=== PATIENT | male | born 1940 | race Caucasian/White ===

== ENCOUNTER → 2016-09-18 | Outpatient (CLI) | payer MEDICARE, OTHER ==
[~2016-09-18] MED LIST: CARTIA XT120 MG OP; FINASTERIDE5 M1 PO; KLONOPIN 0.5MG0.5 MG PO; LATANOPROST 2.2.5 ML OU; SERTRALINE HYDR50 MG PO; TIMOLOL MALEATE10 M1 OU; VITAMIN D400 UNI1 PO; WARFARIN SOD5 MG
== END ==
LOC: RAD 09:31
DX: R53.1 Weakness (principal); R26.89 Other abnormalities of gait and mobility
CPT/HCPCS: Q9967

== ENCOUNTER → 2016-10-09 | Outpatient (CLI) | payer MEDICARE, OTHER | LOC: RAD 09:46 | DX: R93.8 Abnormal findings on diagnostic imaging of other specified body structures (principal); R63.4 Abnormal weight loss | CPT/HCPCS: Q9967 ==

== ENCOUNTER → 2016-10-13 | Day surgery (SDC) | payer MEDICARE, OTHER | LOC: MSO 09:29 | DX: Z12.11 Encounter for screening for malignant neoplasm of colon (principal); R63.4 Abnormal weight loss; K59.00 Constipation, unspecified; Z79.01 Long term (current) use of anticoagulants; I48.92 Unspecified atrial flutter; I48.91 Unspecified atrial fibrillation | CPT/HCPCS: 00740; G0121; 00810; J7120 ==

== ENCOUNTER → 2016-10-16 | Outpatient (CLI) | payer MEDICARE, OTHER | LOC: RAD 08:52 | DX: K76.9 Liver disease, unspecified (principal) ==

== ENCOUNTER 2016-10-30 17:07 | Emergency (ER) | payer MEDICARE, OTHER ==
[~2016-10-30] VITALS: Wt 78.6 kg
[2016-10-30] MEDS ORDERED: CARTIA XT120 MG OP (17:18)
[2016-10-30] MEDS ORDERED: WARFARIN SOD5 MG (17:19)
[2016-10-30] MEDS ORDERED: SERTRALINE HYDR50 MG PO (17:19)
[2016-10-30] MEDS ORDERED: KLONOPIN 0.5MG0.5 MG PO (17:19)
[2016-10-30] MEDS ORDERED: LATANOPROST 2.2.5 ML OU (17:20)
[2016-10-30] MEDS ORDERED: TIMOLOL MALEATE10 M1 OU (17:20)
[2016-10-30] MEDS ORDERED: FINASTERIDE5 M1 PO (17:21)
[2016-10-30] MEDS ORDERED: VITAMIN D400 UNI1 PO (17:21)
[2016-10-30 19:29] VITALS: BP 110/67
== END 2016-10-30 19:37 | disposition home or self-care (01) ==
LOC: ED 17:07
DX: K56.41 Fecal impaction (principal); R11.0 Nausea; Z79.01 Long term (current) use of anticoagulants; I48.91 Unspecified atrial fibrillation

== ENCOUNTER 2016-12-23 14:00 | Outpatient (RCR) | payer MEDICARE, OTHER | END 2017-01-06 13:21 | disposition home or self-care (01) | LOC: PT 14:00 | DX: R53.1 Weakness (principal) ==

== ENCOUNTER → 2016-12-23 | Outpatient (CLI) | payer MEDICARE, OTHER | LOC: RAD 11:00 | DX: H53.9 Unspecified visual disturbance (principal); I65.23 Occlusion and stenosis of bilateral carotid arteries ==

== ENCOUNTER → 2017-08-15 | Outpatient (CLI) | payer MEDICARE, OTHER ==
[2017-08-15 11:11] LABS: PROTHROMBIN TIME 19.9 SECONDS (9.0-12.0)
== END ==
LOC: LAB 10:49
PROVIDERS: Family Medicine
DX: Z79.01 Long term (current) use of anticoagulants (principal)

== ENCOUNTER 2017-10-08 11:00 | Outpatient (RCR) | payer MEDICARE, OTHER | END 2017-10-08 11:30 | disposition home or self-care (01) | LOC: PT 11:00 | DX: Z47.1 Aftercare following joint replacement surgery (principal); Z96.651 Presence of right artificial knee joint | CPT/HCPCS: G8978-GP; G8979-GP ==

== ENCOUNTER 2019-07-24 17:30 | Emergency (ER) | payer MEDICARE, OTHER ==
[2019-07-24] MEDS ORDERED: VENLAFAXINE HYD75 MG (17:39)
[2019-07-24] MEDS ORDERED: METOPROLOL SUCC25 M1 (17:40)
[2019-07-24] MEDS ORDERED: PRAVASTATIN SOD10 MG (17:40)
[2019-07-24 18:12] LABS: EOS # 0.1 (0.04-0.40); HEMATOCRIT 42.4 % (42.0-52.0); HEMOGLOBIN 15.1 g/dL (13.5-18.0); MEAN CELL VOLUME 91 fl (78-100); MEAN CORPUSCULAR HEMOGLOBIN 33 pg (27-31); MEAN CORPUSCULAR HGB CONC 36 g/dL (33-37); MEAN PLATELET VOLUME 11.1 fl (7.4-10.4); MONO # 0.6 (0.20-0.80); NEU # 4.1 (1.40-6.50); PLATELET COUNT 133 K/mm3 (130-400); RED BLOOD COUNT 4.65 M/mm3 (4.20-5.60); WHITE BLOOD COUNT 5.8 K/mm3 (4.8-10.8)
[2019-07-24 18:22] LABS: ALBUMIN 3.9 g/dL (3.4-4.8); POTASSIUM 4.3 mmol/L (3.5-5.1)
[2019-07-24 18:23] LABS: CALCIUM 8.8 mg/dL (8.3-10.5)
[2019-07-24 18:25] LABS: TOTAL PROTEIN 6.7 g/dL (6.2-8.1)
[2019-07-24 18:26] LABS: TOTAL BILIRUBIN 0.7 mg/dL (0.2-1.2)
[2019-07-24] MEDS ORDERED: KLONOPIN 0.5MG0.5 MG PO (19:18)
[2019-07-24 19:35] VITALS: BP 114/73
== END 2019-07-24 19:35 | disposition home or self-care (01) ==
LOC: ED 17:30
PROVIDERS: Family Medicine
DX: K62.5 Hemorrhage of anus and rectum (principal); I48.91 Unspecified atrial fibrillation; F41.9 Anxiety disorder, unspecified; N40.0 Benign prostatic hyperplasia without lower urinary tract symptoms; Z79.01 Long term (current) use of anticoagulants; Z97.0 Presence of artificial eye

== ENCOUNTER → 2019-08-08 | Outpatient (CLI) | payer MEDICARE, OTHER ==
[2019-07-24 19:35] VITALS: BP 114/73
[~2019-08-08] MED LIST changes: +METOPROLOL SUCC25 M1; +PRAVASTATIN SOD10 MG; +VENLAFAXINE HYD75 MG
[2019-08-08 13:46] LABS: EOS # 0.1 (0.04-0.40); EOS % 1.7 % (0.0-4.0); HEMATOCRIT 45.4 % (42.0-52.0); HEMOGLOBIN 15.6 g/dL (13.5-18.0); MEAN CELL VOLUME 93 fl (78-100); MEAN CORPUSCULAR HEMOGLOBIN 32 pg (27-31); MEAN CORPUSCULAR HGB CONC 34 g/dL (33-37); MEAN PLATELET VOLUME 10.6 fl (7.4-10.4); MONO # 0.6 (0.20-0.80); NEU # 3.6 (1.40-6.50); PLATELET COUNT 128 K/mm3 (130-400); RED BLOOD COUNT 4.86 M/mm3 (4.20-5.60); RED CELL DISTRIBUTION WIDTH 13.4 % (11.5-14.5); WHITE BLOOD COUNT 5.3 K/mm3 (4.8-10.8)
[2019-08-08 13:56] LABS: POTASSIUM 4.6 mmol/L (3.5-5.1)
[2019-08-08 13:57] LABS: CALCIUM 9.5 mg/dL (8.3-10.5)
[2019-08-08 13:58] LABS: TOTAL PROTEIN 6.6 g/dL (6.2-8.1)
[2019-08-08 14:00] LABS: TOTAL BILIRUBIN 0.8 mg/dL (0.2-1.2)
== END ==
LOC: LAB 13:27
PROVIDERS: Family Medicine
DX: E87.1 Hypo-osmolality and hyponatremia (principal); D75.89 Other specified diseases of blood and blood-forming organs; R30.0 Dysuria